=== PATIENT | male | born 1960 | race Caucasian/White ===

== ENCOUNTER 2017-10-06 11:33 | Emergency (ER) | payer SELFPAY ==
[2017-10-06] MEDS ORDERED: CONTRAST GIVEN MC (12:30)
[2017-10-06 12:32] LABS: ADD MAN DIFF? NO
[2017-10-06 12:37] LABS: BASO % 1 % (0-3); EOS # 0.1 x10^3/uL (0.0-0.7); EOS % 2 % (0-3); HEMATOCRIT 38.7 % (39.0-53.0); LYMPH # 1.2 x10^3/uL (1.0-4.8); LYMPH % 16 % (24-48); MEAN CORPUSCULAR HEMOGLOBIN 33 pg (25-35); MEAN CORPUSCULAR HGB CONC 34 g/dL (31-37); MEAN CORPUSCULAR VOLUME 97 fL (79-100); MONO # 0.7 x10^3/uL (0.0-1.1); MONO % 10 % (0-9); NEUT # 5.4 x10^3uL (1.8-7.7); NEUT % 72 % (31-73); PLATELET COUNT 186 x10^3/uL (140-400); RED BLOOD COUNT 4.01 x10^6/uL (4.30-5.70); RED CELL DISTRIBUTION WIDTH 14.1 % (11.5-14.5); WHITE BLOOD COUNT 7.5 x10^3/uL (4.0-11.0)
[2017-10-06 12:51] LABS: ANION GAP 7 (6-14); BLOOD UREA NITROGEN 18 mg/dL (8-26); BUN/CREATININE RATIO 26 (6-20); CALCIUM 8.8 mg/dL (8.5-10.1); CARBON DIOXIDE 27 mmol/L (21-32); CHLORIDE 105 mmol/L (98-107); CREATININE 0.7 mg/dL (0.7-1.3); GFR 116.2; GLUCOSE 88 mg/dL (70-99); POTASSIUM 4.2 mmol/L (3.5-5.1); SODIUM 139 mmol/L (136-145)
[2017-10-06 12:58] LABS: ALBUMIN 3.4 g/dL (3.4-5.0); ALBUMIN/GLOBULIN RATIO 0.9 (1.0-1.7); ALK PHOS 76 U/L (46-116); ALT (SGPT) 46 U/L (16-63); AST (SGOT) 43 U/L (15-37); TOTAL BILIRUBIN 0.4 mg/dL (0.2-1.0); TOTAL PROTEIN 7.1 g/dL (6.4-8.2)
[2017-10-06] MEDS: IOHEXOL 300 MG/ML 100ML VIAL. IV (13:03)
[2017-10-06 13:17] LABS: NEGATIVE OBC STREP NEG; POSITIVE OBC STREP POS
[2017-10-06] MEDS ORDERED: cefTRIAXone SODIUM 2 GM in IV DEXTROSE 5% 100 ML IV (14:15)
[2017-10-06] MEDS: DEXAMETHASONE SOD PHOS 20 MG/5 ML VIAL. IV (14:22)
[2017-10-06] MEDS: cefTRIAXone IV Push 2 GM VIAL. IVP (14:25)
[2017-10-06] MEDS ORDERED: HYDROcodone/APAP 5/325MG 1 TAB TABLET (15:10)
[2017-10-06] MEDS: HYDROcodone/APAP 10/325 1 TAB TABLET PO (15:15)
== END 2017-10-06 15:15 | disposition home or self-care (01) ==
LOC: ER 11:33
DX: J39.2 Other diseases of pharynx (principal); Z59.0 Homelessness
CPT/HCPCS: 36415; 70491; 80053; 85025; 87070; 87880; 96374; 96375; 99285-25; J0696; J1100; Q9967

== ENCOUNTER 2017-10-15 04:18 | Emergency (ER) | payer SELFPAY ==
[2017-10-15] MEDS ORDERED: HYDROcodone/APAP 5/325MG 1 TAB TABLET (05:03)
[2017-10-15] MEDS: HYDROcodone/APAP 5/325MG 1 TAB TABLET PO (05:09)
[2017-10-15] MEDS ORDERED: AMOXICILLIN/K CLAV 875/125MG TABLET. (05:21)
[2017-10-15] MEDS: AMOXICILLIN/K CLAV 875/125MG TABLET. PO (05:28)
== END 2017-10-15 05:38 | disposition home or self-care (01) ==
LOC: ER 04:18
DX: C14.0 Malignant neoplasm of pharynx, unspecified (principal)
CPT/HCPCS: 99283

== ENCOUNTER 2017-10-26 02:33 | Emergency (ER) | payer SELFPAY ==
[2017-10-26] MEDS: NAPROXEN 500 MG TABLET PO (04:03)
[2017-10-26] MEDS: HYDROcodone/APAP 5/325MG 1 TAB TABLET PO (04:03)
== END 2017-10-26 04:00 | disposition home or self-care (01) ==
LOC: ER 02:33
DX: S22.31XA Fracture of one rib, right side, initial encounter for closed fracture (principal); W10.9XXA Fall (on) (from) unspecified stairs and steps, initial encounter; Y93.01 Activity, walking, marching and hiking; Y92.89 Other specified places as the place of occurrence of the external cause; Y99.8 Other external cause status
CPT/HCPCS: 71101; 99284-25

== ENCOUNTER 2019-11-26 07:45 | Emergency (ER) | payer SELFPAY ==
[~2019-11-26] VITALS: Ht 190.5 cm; Wt 91.0 kg
[~2019-11-26 07:45] MED LIST: HYDR-3135 PO; NAPR-683 PO
[2019-11-26 08:10] VITALS: BP 142/81
[2019-11-26] MEDS ORDERED: AZIT250T PO (08:31)
--- NOTE | 2019-11-26 08:31 | PHYS DOC ---
Past Medical History Past Medical History: Other Additional Past Medical Histor: TONSILLITIS THROAT CANCER, HERNIA Past Surgical History: No Surgical History, Other Additional Past Surgical Histo: tracheostomy Smoking Status: Current Every Day Smoker Alcohol Use: None Drug Use: None General Adult EDM: Chief Complaint: MULTIPLE COMPLAINTS HPI: HPI: Patient is a 59-year-old male with a history of a throat cancer and subsequent tracheostomy. He presents with increased trach drainage for the last several days. He denies any fever chills or sweats. He has had decreased energy and has some body aches. He denies any sick contacts. [] Review of Systems: Review of Systems: Constitutional: Denies fever or chills. [] Eyes: Denies change in visual acuity. [] HENT: Denies nasal congestion or sore throat. [] Respiratory: Per HPI. [] Cardiovascular: Denies chest pain or edema. [] GI: Denies abdominal pain, nausea, vomiting, bloody stools or diarrhea. [] : Denies dysuria. [] Musculoskeletal: Denies back pain or joint pain. [] Integument: Denies rash. [] Neurologic: Denies headache, focal weakness or sensory changes. [] Endocrine: Denies polyuria or polydipsia. [] Lymphatic: Denies swollen glands. [] Psychiatric: Denies depression or anxiety. [] Heart Score: Risk Factors: Risk Factors: DM, Current or recent (<one month) smoker, HTN, HLP, family history of CAD, obesity. Risk Scores: Score 0 - 3: 2.5% MACE over next 6 weeks - Discharge Home Score 4 - 6: 20.3% MACE over next 6 weeks - Admit for Clinical Observation Score 7 - 10: 72.7% MACE over next 6 weeks - Early Invasive Strategies Allergies: Allergies: Allergies Coded Allergies Type Severity Reaction Last Updated Verified No Known Drug Allergies 10/06/17 No Physical Exam: PE: Constitutional: Well developed, well nourished, no acute distress, non-toxic appearance. [] HENT: Normocephalic, atraumatic, bilateral external ears normal, oropharynx moist, no oral exudates, nose normal. [] Eyes: PERRLA, EOMI, conjunctiva normal, no discharge. [] Neck: Normal range of motion, no tenderness, supple, no stridor. [] Cardiovascular:Heart rate regular rhythm, no murmur [] Lungs & Thorax: Bilateral breath sounds clear to auscultation he does have some purulent drainage from his trach however his lungs are essentially clear [] Abdomen: Bowel sounds normal, soft, no tenderness, no masses, no pulsatile masses. [] Skin: Warm, dry, no erythema, no rash. [] Back: No tenderness, no CVA tenderness. [] Extremities: No tenderness, no cyanosis, no clubbing, ROM intact, no edema. [] Neurologic: Alert and oriented X 3, normal motor function, normal sensory function, no focal deficits noted. [] Psychologic: Affect normal, judgement normal, mood normal. [] Current Patient Data: Vital Signs: Vital Signs Date Time Temp Pulse Resp B/P (MAP) Pulse Ox O2 Delivery O2 Flow Rate FiO2 11/26/19 08:10 97.4 71 18 142/81 (101) 98 Room Air 97.4 EKG: EKG: [] Radiology/Procedures: Radiology/Procedures: [] Course & Med Decision Making: Course & Med Decision Making Pertinent Labs and Imaging studies reviewed. (See chart for details) [] Dragon Disclaimer: Amitive Disclaimer: This electronic medical record was generated, in whole or in part, using a voice recognition dictation system. Departure Departure Impression: Primary Impression: Acute tracheitis Qualified Codes: J04.10 - Acute tracheitis without obstruction Disposition: HOME, SELF-CARE Condition: STABLE Referrals: NO PCP (PCP) Patient Instructions: Bronchitis Additional Instructions: Return to the emergency department with any new or concerning symptoms Scripts Azithromycin (ZITHROMAX) 250 Mg Tablet 1 PKG PO UD for bronchitis, #6 TAB Take 2 tablets on day 1 and then 1 tablet each day for the next 4 days as directed Prov: TARA GAINES DO 11/26/19 TARA GAINES DO November 26, 2019 08:31
== END 2019-11-26 09:08 | disposition home or self-care (01) ==
LOC: ER 07:45
DX: J04.10 Acute tracheitis without obstruction (principal); M79.10 Myalgia, unspecified site; F17.200 Nicotine dependence, unspecified, uncomplicated; Z98.890 Other specified postprocedural states; Z93.0 Tracheostomy status
CPT/HCPCS: 99283